=== PATIENT | male | born 2000 | race Caucasian/White ===

== ENCOUNTER 2023-01-15 20:20 | Emergency (ER) | payer SELFPAY ==
[2023-01-15 20:39] VITALS: BP 153/82; PULSE 98; RESP 17; TEMP 36.8; O2SAT 97; BMI 25.8
--- NOTE | 2023-01-15 20:44 | XRR_ITS ---
PROCEDURE INFORMATION: Exam: XR Right Hand Exam date and time: 01/15/2023 8:51 PM Age: 22 years old Clinical indication: Pain; Hand; Right; Additional info: Right hand injury TECHNIQUE: Imaging protocol: Radiologic exam of the right hand. Views: 3 or more views. COMPARISON: No relevant prior studies available. FINDINGS: Bones/joints: Comminuted displaced fracture in the base of the 5th metacarpal. The other bones are intact. Soft tissues: Dorsal soft tissue swelling of the hand. XR/XR hand RT min 3V* [id number] IMPRESSION: Comminuted fracture in the base of the 5th metacarpal.
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
--- NOTE | 2023-01-16 08:14 | PC.SOCIAL ---
Ortho Referral Referral message sent at this time. Clinic to contact patient with appt date/time.
== END 2023-01-15 22:15 | disposition home or self-care (01) ==
PROVIDERS: Emergency Provider Emergency Medicine
DX: S62.316A Displaced fracture of base of fifth metacarpal bone, right hand, initial encounter for closed fracture (principal); W51.XXXA Accidental striking against or bumped into by another person, initial encounter
CPT/HCPCS: 29125; 73130; 99283

== ENCOUNTER → 2023-01-20 14:51 | Outpatient (BNVA) | payer SELFPAY | PROVIDERS: Referring Provider Emergency Medicine; Visit Provider Specialist | DX: S62.316A Displaced fracture of base of fifth metacarpal bone, right hand, initial encounter for closed fracture; W51.XXXA Accidental striking against or bumped into by another person, initial encounter | CPT/HCPCS: 73130 ==

== ENCOUNTER 2023-01-20 16:08 | Outpatient (CLI) | payer SELFPAY | END 2023-01-20 16:09 | disposition home or self-care (01) | LOC: SPT 16:08 | PROVIDERS: Visit Provider Specialist | DX: Z46.89 Encounter for fitting and adjustment of other specified devices (principal); S62.306D Unspecified fracture of fifth metacarpal bone, right hand, subsequent encounter for fracture with routine healing; X58.XXXD Exposure to other specified factors, subsequent encounter | CPT/HCPCS: 97760; 99204; L3807 ==

== ENCOUNTER 2023-01-23 13:28 | Day surgery (SDC) | payer SELFPAY ==
[2023-01-23] VITALS (10 sets, daily range): BP systolic 99–133; BP diastolic 51–95; PULSE 67–100; RESP 16; TEMP 36.1–36.3; O2SAT 92–100
[2023-01-23] MEDS: sodium chloride 0.9% 1,000 ML 30 ML IV (14:31)
[2023-01-23] MEDS: acetaminophen 1,000 MG/100 ML PIGGYBACK 400 MG IV (14:31)
[2023-01-23] MEDS: CELEcoxib 200 mg Capsule 400 MG PO (14:32)
--- NOTE | 2023-01-23 14:33 | ANES.PREANE2 ---
Pre-Anesthetic Assessment Height/Weight: Height 1.78 m Weight 81.647 kg Temp Pulse Resp BP Pulse Ox O2 Del Method 97.3 F L 82 16 133/77 97 Room Air 01/23/23 14:01 01/23/23 14:01 01/23/23 14:01 01/23/23 14:01 01/23/23 14:01 01/23/23 14:14 Operation Date: 01/23/23 15:20 Proposed Procedures p Reduction and internal fixation of the right fifth metacarpal 27872 S62.306A(Right) - Daisha Oliva MD Was Beta Camille taken within 24 hours: N/A Was Clonidine taken within 24 hours: N/A Last intake: Intake Last Liquid Date 01/23/23 Last Liquid Time 09:30 Last Solid Date 01/22/23 Last Solid Time 21:00 Social Tobacco 1/2 pack(s) per day Exam alert, oriented x 3, clear to auscultation bilaterally and regular rate & rhythm Airway Submandibular: within normal limits Cervical ROM: within normal limits Mallampati: Class II History/ROS No significant history except as noted and No significant complaints Neuropsych Anxiety Anesthetic Plan ASA status: 2 Anesthesia: General Risk of > 500 ml blood loss (7ml/kg in children): No Medications/Allergies Home Medications Medication Instructions Recorded Confirmed Last Taken Type Ulnar Gutter Splint #1 ea 01/20/23 01/23/23 Unknown Rx Allergies Allergy/AdvReac Type Severity Reaction Status Date / Time No Known Allergies Allergy Verified 01/23/23 14:00 Current Medications Generic Name Dose Route Start Last Admin Trade Name Freq PRN Reason Stop Dose Admin Sodium Chloride 1,000 mls @ 30 mls/hr 01/23/23 14:00 01/23/23 14:31 Sodium Chloride 0.9% IV 01/24/23 13:59 30 mls/hr .Q24H JENNIFER Administration Data Anesthesia Cardiac Studies: No Data to Display
--- NOTE | 2023-01-23 16:30 | W.PM.OPSUD ---
Surgery/Procedure H&P Update DATE OF PROCEDURE: January 23, 2023 DATE H&P PERFORMED: 01/20/23 H&P UPDATE INFORMATION: I have reviewed H&P completed within last 30 days, I have examined patient prior to procedure, No changes to prior documentation and H&P is in [facility] EMR on date indicated PLANNED PROCEDURE: Operation Date: 01/23/23 15:20 Proposed Procedures p Reduction and internal fixation of the right fifth metacarpal 97260 S62.306A(Right) - Daisha Oliva MD Related Problem List Diagnoses (1) Displaced fracture of base of fifth metacarpal bone, right hand, initial encounter for closed fracture:
[2023-01-23] MEDS: ceFAZolin 2,000 MG in sodium chloride 0.9% (plus) 50 ML 100 MG IV (16:48)
[2023-01-23] MEDS: ceFAZolin 1,000 mg SDV 1000 MG IRRIGATION (17:25)
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
--- NOTE | 2023-01-23 18:04 | XRR_ITS ---
PROCEDURE INFORMATION: Exam: XR Right Hand Exam date and time: 01/23/2023 6:10 PM Age: 22 years old Clinical indication: Device placement; Joint fixation hardware; Prior surgery; Surgery date: Post-operative (0-2 days); Surgery type: Pins; Additional info: Status post closed reduction and percutaneous pinning TECHNIQUE: Imaging protocol: Radiologic exam of the right hand. Views: 1 or 2 views. COMPARISON: CR ( EX, ) 01/15/2023 8:51 PM FINDINGS: Bones/joints: Improved alignment status post ORIF and casting with 2 K-wires extending through the proximal and distal aspect of the 5th metacarpal. Soft tissues: Normal. XR/XR hand RT 2V [id number] IMPRESSION: Improved alignment status post ORIF and casting with 2 K-wires extending through the proximal and distal aspect of the 5th metacarpal.
[2023-01-23] MEDS: fentaNYL 50 mcg/mL INJ 2mL IVP (18:10)
--- NOTE | 2023-01-23 18:32 | ANE.PACU2 ---
Inpatient post-anesthesia follow up: Airway intact: Yes Vital signs: Temperature 97 F Pulse Rate 75 Respiratory Rate 16 Blood Pressure 132/77 Pulse Oximetry 92 Oxygen Delivery Me thod Room Air Oxygen Flow Rate Fraction of Inspir ed Oxygen Hydration adequate: Yes Nausea and vomiting: No Pain level: 1 Mental status: Baseline
[2023-01-23] MEDS: HYDROcodone-acetaminophen 5-325 mg Tablet 1 TAB PO (18:46)
== END 2023-01-23 18:55 | disposition home or self-care (01) ==
PROVIDERS: Visit Provider Specialist
PROC: (CPT 26615; principal; 2023-01-23 15:00)
DX: S62.316A Displaced fracture of base of fifth metacarpal bone, right hand, initial encounter for closed fracture (principal); W22.09XA Striking against other stationary object, initial encounter
CPT/HCPCS: 26608; 73120; 76000; C1713; J0131; J0690; J1100; J1885; J2250; J2405; J2704; J3010; J7030

== ENCOUNTER → 2023-02-06 08:57 | Outpatient (BNVA) | payer SELFPAY | PROVIDERS: Visit Provider Nurse Practitioner | DX: Z98.890 Other specified postprocedural states; S62.306D Unspecified fracture of fifth metacarpal bone, right hand, subsequent encounter for fracture with routine healing; X58.XXXD Exposure to other specified factors, subsequent encounter | CPT/HCPCS: 73130 ==

== ENCOUNTER 2023-02-06 13:59 | Outpatient (CLI) | payer SELFPAY | END 2023-02-06 14:00 | disposition home or self-care (01) | LOC: SPT 14:00 | PROVIDERS: Visit Provider Nurse Practitioner | DX: Z46.89 Encounter for fitting and adjustment of other specified devices (principal); S62.316D Displaced fracture of base of fifth metacarpal bone, right hand, subsequent encounter for fracture with routine healing; X58.XXXD Exposure to other specified factors, subsequent encounter | CPT/HCPCS: 97760; L3984 ==

== ENCOUNTER → 2023-02-13 09:28 | Outpatient (BNVA) | payer SELFPAY | PROVIDERS: Visit Provider Nurse Practitioner | DX: Z98.890 Other specified postprocedural states; S62.316D Displaced fracture of base of fifth metacarpal bone, right hand, subsequent encounter for fracture with routine healing; X58.XXXD Exposure to other specified factors, subsequent encounter | CPT/HCPCS: 73130 ==

== ENCOUNTER → 2023-02-24 15:00 | Outpatient (BNVA) | payer SELFPAY | PROVIDERS: Visit Provider Nurse Practitioner | DX: Z98.890 Other specified postprocedural states; S62.316D Displaced fracture of base of fifth metacarpal bone, right hand, subsequent encounter for fracture with routine healing; X58.XXXD Exposure to other specified factors, subsequent encounter | CPT/HCPCS: 73120; 73130 ==

== ENCOUNTER → 2023-03-19 08:25 | Outpatient (BNVA) | payer SELFPAY | PROVIDERS: Visit Provider Nurse Practitioner | DX: Z98.890 Other specified postprocedural states; S62.316D Displaced fracture of base of fifth metacarpal bone, right hand, subsequent encounter for fracture with routine healing; X58.XXXD Exposure to other specified factors, subsequent encounter | CPT/HCPCS: 73120 ==